=== PATIENT | female | born 1985 | race Caucasian/White ===

== ENCOUNTER 2018-02-25 09:02 | Emergency (ER) | payer OTHER ==
[~2018-02-25] VITALS: Ht 165.1 cm; Wt 77.1 kg
[2018-02-25 09:10] VITALS: BP 127/79
--- NOTE | 2018-02-25 09:27 | NUR ---
32/F BIB FAMILY. PT WAS DC THIS MORNING BY , SURGICAL; INTERVENTION WAS RECOMMENDED IF PATIENT WAS TO RETURN; BILATERAL ADNEXAL DERMOIDS. PT C/O OF ABDOMINL PAIN. PT RETURNED TO ED DUE TO ABDOMINAL DISCOMFORT.DENIES N/V/D; SKIN IS PINK/WARM/DRY; AAOX4 WITH EVEN AND STEADY GAIT; PATIENT STATES PAIN OF 0/10 AT THIS TIME; VSS; PATIENT POSITIONED FOR COMFORT; HOB ELEVATED; BEDRAILS UP X2; BED DOWN. ER MD MADE AWARE OF PT STATUS.
--- NOTE | 2018-02-25 09:27 | NUR ---
32/F BIB FAMILY. PT WAS DC THIS MORNING BY . PT DX WITH BILATERAL ADNEXAL DERMOIDS. PT C/O OF ABDOMINL PAIN. PT RETURNED TO ED DUE TO ABDOMINAL DISCOMFORT.DENIES N/V/D; SKIN IS PINK/WARM/DRY; AAOX4 WITH EVEN AND STEADY GAIT; PATIENT STATES PAIN OF 0/10 AT THIS TIME; VSS; PATIENT POSITIONED FOR COMFORT; HOB ELEVATED; BEDRAILS UP X2; BED DOWN. ER MD MADE AWARE OF PT STATUS.
--- NOTE | 2018-02-25 10:39 | NUR ---
Patient being evaluated by at bedside.
[2018-02-25 10:54] VITALS: BP 119/71
== END 2018-02-25 10:54 | disposition home or self-care (01) ==
LOC: MED 09:02
DX: D28.7 Benign neoplasm of other specified female genital organs (principal)
CPT/HCPCS: 81002; 81025; 99283

== ENCOUNTER 2020-02-12 19:35 | Emergency (ER) | payer OTHER ==
[~2020-02-12] VITALS: Ht 160 cm; Wt 59.0 kg
[2020-02-12 19:43] VITALS: BP 113/69
--- NOTE | 2020-02-12 19:50 | NUR ---
PT AMBUALTED TO RESTROOM TO PROVIDE UA SAMPLE.
--- NOTE | 2020-02-12 19:55 | NUR ---
UA SAMPLE PROVIDED AND LEFT IN DIRTY UTILITY. PT IN LOBBY AWATING BED.
--- NOTE | 2020-02-12 20:09 | NUR ---
PT TAKEN TO BED 3. AMBUALTED WITH STEADY GAIT.
[2020-02-12] MEDS ORDERED: KETOROLAC 30 MG/ML VIAL IM ONE (20:10)
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
--- NOTE | 2020-02-12 20:10 | NUR ---
SHAYY PETER AT BEDSIDE EXAMINING PT
--- NOTE | 2020-02-12 20:17 | NUR ---
PT TAKEN TO XRAY VIA W/C
--- NOTE | 2020-02-12 20:35 | NUR ---
PT RETURNED FROM XRAY
[2020-02-12 21:05] VITALS: BP 113/69
--- NOTE | 2020-02-12 21:05 | NUR ---
Patient discharged with v/s stable. Written and verbal after care instructions given and explained. Patient alert, oriented and verbalized understanding of instructions. Ambulatory with steady gait. All questions addressed prior to discharge. ID band removed. Patient advised to follow up with PMD. Rx of ACETAMINOPHEN AND IBUPROFEN given. Patient educated on indication of medication including possible reaction and side effects. Opportunity to ask questions provided and answered.
== END 2020-02-12 21:05 | disposition home or self-care (01) ==
LOC: MED 19:35
DX: S16.1XXA Strain of muscle, fascia and tendon at neck level, initial encounter (principal); S39.012A Strain of muscle, fascia and tendon of lower back, initial encounter; Z87.42 Personal history of other diseases of the female genital tract; V89.2XXA Person injured in unspecified motor-vehicle accident, traffic, initial encounter; Y93.89 Activity, other specified; Y92.89 Other specified places as the place of occurrence of the external cause; Y99.8 Other external cause status
CPT/HCPCS: 72050; 72100; 81025; 96372; 99284; J1885